=== PATIENT | female | born 1980 | race Caucasian/White ===

== ENCOUNTER 2021-11-22 23:53 | Emergency (ER) | payer OTHER ==
[~2021-11-22] VITALS: Ht 177.8 cm; Wt 85.7 kg
[2021-11-23] MEDS ORDERED: OXYCODONE HCL5 MG PO (00:05)
[2021-11-23] MEDS ORDERED: NEURONTIN100 MG (00:05)
[2021-11-23] MEDS ORDERED: CYCLOBENZAPRINE10 MG PO (00:05)
[2021-11-23] MEDS ORDERED: HYDROCODON-ACE1 EA10 PO (02:49)
== END 2021-11-23 03:00 | disposition home or self-care (01) ==
LOC: ED 23:53
DX: S06.0X9A Concussion with loss of consciousness of unspecified duration, initial encounter (principal); S16.1XXA Strain of muscle, fascia and tendon at neck level, initial encounter; S40.012A Contusion of left shoulder, initial encounter; V49.50XA Passenger injured in collision with unspecified motor vehicles in traffic accident, initial encounter; Z88.2 Allergy status to sulfonamides; Z79.899 Other long term (current) drug therapy
CPT/HCPCS: 36415; 70450; 71260; 72125; 73090; 74177; 80053; 82150; 82553; 83605; 83690; 84702; 85025; 86850; 86900; 86901; 99284-25; A9270; G0480; J1170; J2405; Q9967